=== PATIENT | male | born 1935 | race Caucasian/White ===

== ENCOUNTER → 2024-06-20 | Outpatient (CLI) | payer OTHER ==
[~2024-06-20] MED LIST: ATOR-2 PO; FINA5TAB41 PO; FURO40TA5 PO; LISI20TA24 PO; NITR0.4T50 SL; RIVA20TA PO; TAMS-1 PO
[2024-06-20 12:06] LABS: HEMOGLOBIN A1C 5.9 % (4.0-6.0)
[2024-06-20 12:16] LABS: ALBUMIN 3.5 g/dL (3.5-5.0); BILIRUBIN,TOTAL 0.7 mg/dL (0.2-1.0); CREATININE 1.2 mg/dL (0.5-1.3); POTASSIUM 4.5 mmol/L (3.5-5.1); TOTAL PROTEIN, SERUM 7.4 g/dL (6.0-8.3)
== END | disposition home or self-care (01) ==
LOC: LAB 06-19 10:03
PROVIDERS: ATTEND Student in an Organized Health Care Education/Training Program
DX: E78.5 Hyperlipidemia, unspecified (principal); R07.9 Chest pain, unspecified; Z79.899 Other long term (current) drug therapy
CPT/HCPCS: 36415; 80053; 80061; 83036

== ENCOUNTER → 2024-06-28 | Outpatient (CLI) | payer OTHER ==
[~2024-06-28] MED LIST changes: +IOHEXOL 350 MG/ML 100ML INFUS..BTL IV ONE
--- NOTE | 2024-06-28 14:19 | HMCIMG ---
CT OF THE CHEST WITH CONTRAST- CT Cardiac Angio co-interpretation This is done as part of the CT cardiac angiogram study. The interpretation of the coronary arteries will be done by tractor engine mechanic in a separate report. History: over-read Comparison: none CT Dose Index (CTDI): 77.90 mGy Dose Length Product (DLP): 493.40 total mGy PROTOCOL: Examination is done at 2.5 millimeter volumetric acquisition after contrast administration with Isovue 370, 100 cc IV, without complications. Photography is done at 5 millimeter thick intervals for the thorax. The examination begins above the heart and therefore the lung apices are incompletely included. The rest of the left lung is included but the right lung is only included up to its middle third. The periphery of the right lung is not included in the study. FINDINGS: The visualized part of the airway is preserved. The bony and soft tissue structures of the chest wall are unremarkable. The aorta is unremarkable. No mediastinal lymphadenopathy is seen. The lung windows demonstrate no worrisome pulmonary nodules, masses or infiltrates. There is no evidence of pulmonary embolism in the visualized lung segments. The upper abdominal views are unremarkable. Impression: No significant abnormalities identified.
== END | disposition home or self-care (01) ==
LOC: RAH 12:42
PROVIDERS: ATTEND Student in an Organized Health Care Education/Training Program
DX: R07.9 Chest pain, unspecified (principal)
CPT/HCPCS: 75574; Q9967

== ENCOUNTER 2024-08-17 06:37 | Day surgery (SDC) | payer OTHER ==
[2024-08-15 09:09] LABS: BASOPHILS # (AUTO) 0.02 K/uL (0.00-0.20); BASOPHILS % (AUTO) 0.3 % (0.0-5.0); EOSINOPHILS # (AUTO) 0.13 K/uL (0.00-0.70); EOSINOPHILS % (AUTO) 1.9 % (0.0-8.0); HEMATOCRIT 37.6 % (42-54); IMMATURE GRANULOCYTE ABSOLUTE 0.02 K/uL (0-1); LYMPHOCYTES # (AUTO) 1.4 K/uL (1.0-4.8); LYMPHOCYTES % (AUTO) 21.6 % (21.0-51.0); MEAN CORPUSCULAR HEMOGLOBIN 29.7 pg (27.0-33.0); MEAN CORPUSCULAR HGB CONC 32.2 g/dL (32.0-36.0); MEAN CORPUSCULAR VOLUME 92.2 fL (79-99); MONOCYTES # (AUTO) 0.7 K/uL (0.1-1.0); MONOCYTES % (AUTO) 11.1 % (3.0-13.0); NEUTROPHILS # (AUTO) 4.3 K/uL (1.8-7.7); NEUTROPHILS % (AUTO) 64.8 % (40.0-77.0); PLATELET COUNT (AUTO) 182 K/uL (130-400); RED BLOOD CELL COUNT(AUTO) 4.08 MIL/uL (4.50-6.20); RED CELL DISTRIBUTION WIDTH 14.3 % (11.0-15.5); WHITE BLOOD COUNT (AUTO) 6.7 K/uL (4.8-10.8)
[2024-08-15 09:16] LABS: CREATININE 1.3 mg/dL (0.5-1.3)
[2024-08-15 09:18] LABS: INR 1.25 (0.85-1.15)
[2024-08-15 09:20] LABS: PARTIAL THROMBOPLASTIN TIME 36.2 SEC (26.3-35.5)
[2024-08-15 09:25] VITALS: BP 152/59; PULSE 71; RESP 18; TEMP 97.5
[2024-08-15 09:31] LABS: B-TYPE NATRIURETIC PEPTIDE 60 pg/mL (0-100)
--- NOTE | 2024-08-15 09:49 | EKG ---
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
--- NOTE | 2024-08-15 10:05 | HMCIMG ---
CHEST 1VW HISTORY: Preop COMPARISON: 07/18/2023 FINDINGS: A frontal projection of the chest was obtained. No acute pulmonary infiltrates is seen. The heart is borderline enlarged. Degenerative changes are seen. Prominent interstitial markings are seen. No evidence of aortic calcification is seen. IMPRESSION: 1. No acute pulmonary infiltrate is seen.
--- NOTE | 2024-08-15 13:19 | NUR ---
report dr coy banda informed pt on xarelto and was not given a stop date. also informed pt reported he does not have someone to stay with him overnight. pt to hold 2 days prior and ok to proceed with procedure since md is going in via radial. pt informed of above
--- NOTE | 2024-08-15 15:12 | NUR ---
f/u alfred bishop returned telephone equipment appraiser also informed pt does not have someone to stay with him at home post procedure and dr coy banda notified and plans to proceed
--- NOTE | 2024-08-16 11:20 | NUR ---
report REPORTED BMP TO DR John KAUR. OK TO PROCEED
[~2024-08-17] VITALS: Ht 180.3 cm; Wt 130.8 kg
[2024-08-17] VITALS (15 sets, daily range): BP systolic 106–191; BP diastolic 41–74; PULSE 52–77; RESP 16–18; TEMP 97.3–208.6
[~2024-08-17 06:37] MED LIST changes: +AMLO-257 PO; -ATOR-2 PO; +CARB1KIT2 OT; -FINA5TAB41 PO; -IOHEXOL 350 MG/ML 100ML INFUS..BTL IV ONE; -NITR0.4T50 SL; +VIT1CAPS47 PO
[2024-08-17] MEDS ORDERED: IOHEXOL 350 MG/ML 100ML INFUS..BTL IV ONE ×3 (08:29→10:30)
[2024-08-17] MEDS ORDERED: LIDOCAINE HCL 400MG/20ML VIAL ONE (08:29)
[2024-08-17] MEDS ORDERED: HEParin 10,000 UNIT/10ML (1,000 UNIT/ML) VIAL ONE ×2 (08:29→09:23)
[2024-08-17] MEDS ORDERED: NITROGLYCERIN 50MG VIAL ONE (08:30)
[2024-08-17] MEDS ORDERED: FENTanyl CITRate PF 50 MCG/1 ML 2ML VIAL ONE ×2 (08:30→09:56)
[2024-08-17] MEDS: 0.9%NACL 1000ML 1,000 ML IV SCH ×2 (08:30→12:11)
[2024-08-17] MEDS ORDERED: HEParin-NS 1,000 UNIT/500 ML 1,000 ML IV ONE (08:30)
[2024-08-17] MEDS ORDERED: VERAPAMIL HCL 2.5 MG/ML VIAL ONE (08:31)
[2024-08-17] MEDS ORDERED: MIDAZOLAM HCL 1 MG/ML 2ML VIAL ONE ×3 (08:31→09:57)
[2024-08-17] MEDS ORDERED: ATOR-2 PO (08:36)
[2024-08-17] MEDS ORDERED: NITR0.4T SL (08:36)
[2024-08-17] MEDS ORDERED: FINA5TAB41 PO (08:36)
[2024-08-17] MEDS ORDERED: cloPIDOgrel 300MG TAB ONE (09:23)
[2024-08-17] MEDS ORDERED: ASPIRIN 325MG EC TAB PO ONE (09:24)
[2024-08-17] MEDS ORDERED: ATROPINE 1MG SYG IVP ONE (09:30)
[2024-08-17] MEDS ORDERED: HEParin-NS 1,000 UNIT/500 ML 500 ML IV ONE (09:42)
[2024-08-17] MEDS ORDERED: NITROGLYCERIN 4.9GM SPRAY 60 SPRAY/BOT SPRY TL ONE (10:02)
[2024-08-17] MEDS ORDERED: DOPamine HCL 400 MG/D5%-WATER 0 ML IV ONE (10:02)
[2024-08-17] MEDS ORDERED: GLUCAGON 1MG KIT 1 MG ML IM PRN (11:30)
[2024-08-17] MEDS ORDERED: DEXTROSE 50%-WATER 50 ML DISP.SYRIN IV PRN (11:30)
--- NOTE | 2024-08-17 11:32 | PRN ---
PROCEDURE REPORT DATE OF PROCEDURE: Aug 17, 2024 CARD PLACER: [ POLINA KAUR MD] PROCEDURE PERFORMED: Conscious sedation Ultrasound guided right radial artery access Selective left coronary artery angiogram Selective right coronary artery angiogram Left heart catheterization IVUS of the left main and LAD Shockwave lithotripsy of the proximal LAD and left main Status post successful IVUS guided, PTCA/aVL (3.5 mm shockwave) and PCI of the distal left main to proximal LAD (3.5 x 22 mm josé luis Gurabo drug-eluting stent, POT to 4 mm) Status post successful PTCA/PCI of the ostial to proximal left circumflex (2.75 x 15 mm josé luis Gurabo drug-eluting stent) TR band 13 austyn over right radial artery INDICATION: Abnormal coronary CTA DESCRIPTION OF PROCEDURE: After informed consent was obtained, the patient was prepped and draped in the usual sterile fashion. A 6 Libyan arterial sheath was inserted in the right radial artery using ultrasound guidance with first pass wall puncture. The art erial sheath was aspirated and flushed. A 6 Libyan JL 3.5 was then advanced to the ascending aorta over an exchange length J-tip guidewire, was aspirated and flushed, and was used for selective coronary angiograms in multiple obliquities. A JR-4 was advanced in a similar fashion to the ascending aorta over the J- tipped guidewire and was used for selective right coronary angiograms in multiple oblique views with findings as outlined below. The JR-4 catheter advanced into the LV and pressures were obtained with a pull-back across the aortic valve. Following review of all the angiographic images decision was made to intervene on patient's critical distal left main and proximal LAD ISR. We exchanged the diagnostic catheter for a six Libyan XB three guide catheter was used to select engage the left main coronary artery. We advanced a [place] into the distal LAD under fluoroscopic guidance. We then advanced an 014 runthrough into the distal left circumflex under fluoroscopic guidance. Our decision was to proceed with a provisional stenting technique approach so we pre-dilated the proximal LAD ISR using a 3 x 20 mm compliant balloon to nominal pressures as well as the distal left main to nominal pressures. At this time we proceeded with IVUS of the LAD and left main to further delineate lesion severity and characteristics. We then proceeded with shockwave lithotripsy using a 3.5 x 12 mm shockwave balloon which was inflated to four and six AUSTYN for a total of 10 lithotripsy sessions from the proximal LAD to the distal left main. Falling lithotripsy we noted significant ST elevations and no reflow down to the left circumflex due to plaque shift. At this time we advanced a 2.5 x 15 compliant balloon into the ostial circumflex which was inflated to nominal pres sures to restore BRYCE two flow. At this time we transitioned from the provisional to a mini crush bifurcation stenting technique. At this point we advanced a 2.75 x 15 mm josé luis Gurabo drug-eluting stent into the proximal left circumflex with 2-3 mm stent protrusion to the left main. We also advanced a 3.5 x 22 mm josé luis Gurabo drug-eluting stent within the proximal LAD extending into the mid left main. We deployed the 2.75 x 15 left circumflex stent to nominal pressures. We noted no dissections and scientologist of BRYCE three flow so we removed the runthrough wire and the balloon. We then deployed the 3.5 x 22 mm josé luis Gurabo drug-eluting stent from the distal left main into the proximal LAD crushing the left circumflex stent. We then performed proximal optimization technique using a 4 x 12 mm noncompliant balloon which was inflated to 14 AUSTYN with in the distal left main. We then advanced a 2nd runthrough wire into the left circumflex traversing the crushed stent struts. We then advanced a 2.75 x 15 mm NC balloon into the ostial circumflex as well as a 3.5 x 20 mm compliant balloon. We performed post dilatation of left circumflex to nominal pressures and then we performed post dilatation of the left main and we followed this with a kissing balloon inflation to sub nominal pressures. We removed wires and balloons and final angiographic image revealed scientologist of BRYCE three flow with no dissections or perforations. We did noticed that we a jailed the ostial D1 leading to plaque shift and BRYCE one flow. Given these findings decision was made to terminate the procedure and a A TR band was placed over right radial artery. 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 LEFT ANTERIOR DESCENDING: Large vessel giving rise to two Diagonal branches. 60-70% ostial calcified stenosis followed by 70 80% proximal in stent restenosis followed by BRYCE three flow. D1 is large with 99% ostial stenosis LEFT CIRCUMFLEX: Large and gives rise to two OM branches. 50-60% ostial stenosis, left circumflex was compromised due to no reflow due to plaque shift. OM2 are patent RIGHT CORONARY ARTERY: Large, dominant vessel giving rise to PDA and PL branches. 0% stenosis. HEMOSTASIS: TR band 12 austyn over right radial artery INTERVENTIONS: Status post successful IVUS guided left main bifurcation stenting technique (mini crush) Status post successful IVUS guided, PTCA/aVL (3.5 mm shockwave) and PCI of the distal left main to proximal LAD (3.5 x 22 mm josé luis Gurabo drug-eluting stent, POT to 4 mm) Status post successful PTCA/PCI of the ostial to proximal left circumflex (2.75 x 15 mm josé luis Gurabo drug-eluting stent) COMPLICATIONS: None FINDINGS: Severe two-vessel CAD status post successful revascularization of the distal left main using a mini crush bifurcation technique ESTIMATED BLOOD LOSS: 5 cc RECOMMENDATIONS/INSTRUCTIONS: Aggressive risk factor modification. Patient requires 6-12 months of dap (aspirin 81 mg daily/Plavix 75 mg daily) in addition high-intensity statin therapy and calcium channel boone We will do triple therapy x1 month and we will discontinue aspirin at that time and continue with dual therapy Plavix/Xarelto CONTRAST DELIVERED TO PATIENT (mL): 320cc Polina KAUR,POLINA Colón MD Aug 17, 2024 11:32
[2024-08-18] MEDS ORDERED: cloPIDOgrel 75MG TAB PO SCH (09:00)
[2024-08-18] MEDS ORDERED: ASPIRIN 81MG CHEW TAB PO SCH (09:00)
== END 2024-08-17 15:56 | disposition home or self-care (01) ==
LOC: DAH 06:37
PROVIDERS: ATTEND Student in an Organized Health Care Education/Training Program
DX: R93.1 Abnormal findings on diagnostic imaging of heart and coronary circulation (principal); I25.10 Atherosclerotic heart disease of native coronary artery without angina pectoris; I25.83 Coronary atherosclerosis due to lipid rich plaque; E78.5 Hyperlipidemia, unspecified; I25.2 Old myocardial infarction; G47.33 Obstructive sleep apnea (adult) (pediatric); I48.91 Unspecified atrial fibrillation; I11.0 Hypertensive heart disease with heart failure; I45.89 Other specified conduction disorders; I50.22 Chronic systolic (congestive) heart failure; Z79.01 Long term (current) use of anticoagulants; Z99.89 Dependence on other enabling machines and devices; Z95.5 Presence of coronary angioplasty implant and graft; Z90.89 Acquired absence of other organs; Z79.899 Other long term (current) drug therapy
CPT/HCPCS: 80048; 83880; 85025; 85610; 85730; 36415; 71045; 93005; 92978; 92979; 92972; 85347 ×3; 93458; C9600 ×2; C1769 ×4; C1725 ×5; C1874 ×2; C1894; A4649; C1761; C1887; C1753; J3010 ×2; J3490 ×3; J1644 ×4; J2250 ×3; Q9967 ×3; A4215; A4222; A4221; A4663; A4216; A4606; Q9965 ×3; A4223 ×3; 99156; 99157; J0461; J1265

== ENCOUNTER 2024-09-09 16:21 | Emergency (ER) | payer OTHER ==
[~2024-09-09] VITALS: Ht 180.3 cm; Wt 130.6 kg
[~2024-09-09 16:21] MED LIST changes: +ATOR-2 PO; +FINA5TAB41 PO; +NITR0.4T SL; -TAMS-1 PO; +TAMS-55 PO
--- NOTE | 2024-09-09 17:39 | ERN ---
General Chief Complaint: Allergic Reaction Stated Complaint: MEDICATION REACTION Time Seen by MD: 16:39 Time Seen by Midlevel: 16:39 Source: patient History of Present Illness Initial Comments Patient is an 89-year-old male presenting to the emergency department for a wellness examination. Patient reports having a history of coronary artery disease, hypertension, BPH, and atrial fibrillation. Patient states he normally takes amlodipine, tamsulosin, lisinopril, and furosemide together. Most recently he has been developing episodes of dizziness after taking his medications. He has narrowed it down to either amlodipine or tamsulosin that is causing his symptoms but is unsure so he decided to come in for further evaluation. He was an appointment with his doctor on Wednesday which is two days from today. He was refusing medication just wanted to speak to a practitioner. Allergies: Coded Allergies: No Known Drug Allergies (Unverified Allergy, Unknown, 07/18/23) Home Meds Reported Medications Nitroglycerin (Nitrostat) 0.4 Mg Tab.subl, 0.4 MG SL AD PRN for CHEST PAIN, TAB.SL 08/17/24 Atorvastatin Calcium (Atorvastatin Calcium) 80 Mg Tablet, 80 MG PO HS, TAB 08/17/24 Finasteride (Finasteride) 5 Mg Tablet, 5 MG PO HS, TAB 08/17/24 Carbamide Peroxide/NaCl/Nahco3 (Clearcanal Ear Wax Complete) 6.5 %-0.9 % Kit, 1 EACH OT AD PRN for wax build up, KIT 08/15/24 Amlodipine Besylate (Amlodipine Besylate) 5 Mg Tablet, 5 MG PO HS, TAB 08/15/24 Vit C/E/Zn/Coppr/Lutein/Zeaxan (Preservision Areds 2 Softgel) 250MG-90MG Capsule, 1 EACH PO BID, CAP 08/15/24 Rivaroxaban (Xarelto) 20 Mg Tablet, 20 MG PO HS, TAB 07/18/23 Tamsulosin HCl (Flomax) 0.4 Mg Cap.er.24h, 0.4 MG PO DAILY, CAPSULE.DR 07/18/23 Lisinopril (Lisinopril) 20 Mg Tablet, 20 MG PO DAILY, TAB 07/18/23 Furosemide (Furosemide) 40 Mg Tablet, 40 MG PO AM, TAB 07/18/23 Past Medical History Past Medical History: CAD, Hypertension Medical History Other: HENRY Past Surgical History: Other Surgical History Other: HERNIA REPAIR, GLOSSAL SX HEART STENTS ROS Dictation CONSTITUTIONAL: Negative except for HPI HEAD/FACE: Negative except for HPI EENT: Negative except for HPI RESPIRATORY: Negative except for HPI GASTROINTESTINAL/ABDOMINAL: Negative except for HPI GENITOURINARY: Negative except for HPI MUSCULOSKELETAL: Negative except for HPI INTEGUMENTARY: Negative except for HPI NEUROLOGICAL/PSYCH: Negative except for HPI HEMATOLOGIC/LYMPHATIC: Negative except for HPI All Systems Negative, Except as noted above. 13 point review of systems assessed and all negative except for above. Physical Exam Physical Exam Dictation Vital Signs reviewed General Appearance: Alert, oriented x 3, no acute distress, well developed, nourished. Head and Face: non-traumatic. Eyes: PERRL, pink conjunctivas, eyelid no trauma, anterior chamber with arcus senilis. Ears: Pinnas intact and no signs of trauma or erythema ear canals clear and no discharge TM no erythema Nose: No discharge, no bleeding. Oropharynx: Mouth normal, tongue pink, pharynx clear,no erythema, tonsils no exudates, no abscesses noted, mucous membrane moist Neck: Supple, non-tender, no thyromegaly, no masses, no JVD, no bruits Breast:Deferred Chest:No tenderness, no crepitus, no paradoxical movement, no retractions Lungs:Clear, well-ventilated, symmetric, no rales, no wheezing, no rhonchi, no stridor, good breath sounds bilaterally Heart: Regular rate, regular rhythm, no murmur, no gallops Vascular: no peripheral edema, Abdomen: Soft, positive bowel sounds, nondistended, no guarding, nontender, no rebound, no masses no hepatomegaly, no splenomegaly, no Hawley's sign, no hernias. Rectal: Deferred Genital: Deferred Neurological: Normal speech, motor function intact, sensory function intact Musculoskeletal: Neck nontender, full range of motion, back nontender, full range of motion, Extremities: nontender, full range of motion Skin: Color pink, dry, no turgor, no rash, no lacerations, no abrasions, no contusions. Lymphatic: Deferred MDM MDM: Patient is an 89-year-old male presenting to the emergency department for a wellness examination. Patient reports having a history of coronary artery disease, hypertension, BPH, and atrial fibrillation. Patient states he normally takes amlodipine, tamsulosin, lisinopril, and furosemide together. Most recently he has been developing episodes of dizziness after taking his medications. He has narrowed it down to either amlodipine or tamsulosin that is causing his symptoms but is unsure so he decided to come in for further evaluation. He was an appointment with his doctor on Wednesday which is two days from today. He was refusing medication just wanted to speak to a practitioner. On physical examination the patient was in no acute distress. Initial vital signs are stable. Patient is afebrile and nontoxic appearing. Blood pressure stable. Medications were reviewed. Patient does have multiple medications that may cause hypotension. I did offer a full cardiac workup with the patient was refusing blood work at this time. He states he rather wait until he sees his doctor on Wednesday. For now we concurred that he was stopped taking tamsulosin until he is seen by his PCP. While in the emergency department the patient is specifically denies any dizziness, chest pain, shortness for breath, or any other symptoms at this time. The patient is asymptomatic and is neurologically intact. Patient will be discharged home. Red flag symptoms discussed and return precautions discussed. Differential diagnosis: Medication reaction, wellness examination There are no social concerns with this patient. Prescription drug management Prescriptions will include: None Medical management and examination interpretation discussions were had by me with other qualified healthcare professionals as indicated for the patient's care. ED Course Vital Signs Date Time Temp Pulse Resp B/P (MAP) Pulse Ox O2 Delivery O2 Flow Rate FiO2 09/09/24 16:24 98.2 57 18 148/63 98 0 DX & DISP Disposition: Discharge Departure Impression: Primary Impression: Wellness examination Condition: Stable Additional Instructions: Please stop taking your tamsulosin as discussed. Keep appointment with your doctor on Wednesday as discussed. Return to the ER if you develop any new or worsening symptoms Referrals: NATHANAEL HAWLEY MD (PCP) Time of Disposition: 17:38 I have reviewed the case, and I agree with, Diagnosis and Plan I performed the substantive portion of the visit. I have reviewed and personally made and approve the management plan that is documented in the note by myself or the DON. I acknowledge for responsibility for the patient's management plan. YOSELIN HURD Sep 09, 2024 17:39
[2024-09-09 17:53] VITALS: BP 123/71; PULSE 63; RESP 18; TEMP 97.8; O2SAT 99
== END 2024-09-09 17:50 | disposition home or self-care (01) ==
LOC: EDH 16:21
DX: Z04.89 Encounter for examination and observation for other specified reasons (principal); G47.33 Obstructive sleep apnea (adult) (pediatric); I10 Essential (primary) hypertension; I25.10 Atherosclerotic heart disease of native coronary artery without angina pectoris; Z79.899 Other long term (current) drug therapy; Z95.5 Presence of coronary angioplasty implant and graft; Z98.890 Other specified postprocedural states
CPT/HCPCS: 99281